=== PATIENT | female | born 1980 | race Caucasian/White ===

== ENCOUNTER 2020-10-18 15:21 | Emergency (ER) | payer OTHER ==
[2020-10-18 15:24] VITALS: BMI 30.6
[2020-10-18 17:14] LABS: PH,URINE 6.5 (5.0-8.0); URINE APPEARANCE CLEAR; URINE BILIRUBIN NEGATIVE (NEGATIVE); URINE COLOR YELLOW; URINE GLUCOSE (UA) NEGATIVE (NEGATIVE); URINE KETONE TRACE (NEGATIVE); URINE LEUK ESTERASE NEGATIVE (NEGATIVE); URINE NITRITE NEGATIVE (NEGATIVE); URINE PROTEIN NEGATIVE (NEGATIVE); URINE UROBILINOGEN 0.2 mg/dL (0.2-1.0)
[2020-10-18 17:37] VITALS: BP 124/80; PULSE 88; TEMP 98
== END 2020-10-18 18:39 | disposition home or self-care (01) ==
LOC: JER 15:21
DX: R42 Dizziness and giddiness (principal); Z3A.38 38 weeks gestation of pregnancy
CPT/HCPCS: 36415; 81003; 82570; 82962; 84156; 87086; 99283-25

== ENCOUNTER 2020-11-01 02:45 | Inpatient (IN) | payer OTHER ==
[2020-11-01] MEDS ORDERED: PROMETHAZINE HCL 25 MG/1 ML VIAL IVPB ONE ×2 (03:45→06:40)
[2020-11-01] MEDS: ELECTROLYTE-148 SOLN 1,000 ML IV SCH ×2 (03:50→09:11)
[2020-11-01] MEDS ORDERED: BUTORPHANOL TARTRATE 2 MG/ML VIAL IVPB ONE ×2 (03:55→06:40)
[2020-11-01] MEDS ORDERED: BUTORPHANOL TARTRATE 2 MG/ML VIAL ONE ×2 (04:31→07:09)
[2020-11-01] MEDS ORDERED: PROMETHAZINE HCL 25 MG/1 ML VIAL ONE ×2 (04:31→07:09)
[2020-11-01 05:19] LABS: BASO % 0.4 % (0-2.0); EOS % 0.4 % (0-4.5); HEMATOCRIT 40.2 % (32.4-45.2); HEMOGLOBIN 14.4 GM/dL (10.7-15.3); INR 0.95 (0.83-1.09); LYMPH % 8.9 % (8-40); MCH 32.8 pg (25.7-33.7); MCHC 35.8 g/dl (32.0-36.0); MEAN CELL VOLUME 91.5 fl (80-96); MEAN PLT VOLUME 9.3 fl (7.5-11.1); MONO % 6.6 % (3.8-10.2); NEUT % 83.7 % (42.8-82.8); PLATELET COUNT 67 K/MM3 (134-434); PROTHROMBIN TIME (PATIENT) 11.7 SEC (9.7-13.0); RDW 13.5 % (11.6-15.6); WHITE BLOOD COUNT 8.9 K/mm3 (4.0-10.0)
[2020-11-01 05:22] LABS: ACTIVATED PTT 31.7 SECONDS (25.2-36.5)
[2020-11-01 05:31] LABS: CALCIUM 8.2 mg/dL (8.5-10.1)
[2020-11-01 05:32] VITALS: BMI 30.9
[2020-11-01 05:32] LABS: BLOOD UREA NITROGEN 9.6 mg/dL (7-18)
[2020-11-01 05:35] LABS: CREATININE 0.8 mg/dL (0.55-1.3)
[2020-11-01] MEDS ORDERED: OXYTOCIN 20 UNITS in 0.9% NS 20 UNIT/1,000 ML INFUS.BAG IV ONE (09:02)
[2020-11-01 09:13] LABS: SYPHILIS W/ RPR CONF NON-REACTIVE (NONREACTIVE)
[2020-11-01 09:42] LABS: HIV INTERPRETATION NEGATIVE (NEGATIVE)
[2020-11-01] MEDS ORDERED: OXYTOCIN 30 UNITS in 0.9% NS 30 UNIT/500 ML INFUS.BAG IVPB ONE (10:17)
[2020-11-01] MEDS ORDERED: OXYTOCIN 30 UNITS in 0.9% NS 30 UNIT/500 ML INFUS.BAG IVPB SCH (10:30)
[2020-11-01] MEDS ORDERED: LIDOCAINE HCL 1% PRESERVATIVE FREE - 30ML VIAL ONE (11:12)
[2020-11-01] MEDS ORDERED: METHYLERGONOVINE MALEATE 0.2 MG/1 ML AMP IM PRN (11:43)
[2020-11-01] MEDS ORDERED: BISACODYL 10 MG SUPP.RECT RC PRN (11:43)
[2020-11-01] MEDS ORDERED: BENZOCAINE 28 GM HEMORRHOIDAL OINTMENT TP PRN (11:43)
[2020-11-01] MEDS ORDERED: WITCH HAZEL 50% (TUCKS) 40 PAD/JAR PAD TP PRN (11:43)
[2020-11-01] MEDS ORDERED: BENZOCAINE 20% 57 GM BOTTLE TP PRN (11:43)
[2020-11-01] MEDS ORDERED: METHYLERGONOVINE MALEATE 0.2 MG/1 ML AMP IM ONE (11:44)
[2020-11-01] MEDS ORDERED: OXYTOCIN 20 UNITS in 0.9% NS 20 UNIT/1,000 ML INFUS.BAG IV SCH (11:45)
[2020-11-01 12:00] LABS: CORD BASE EXCESS -6.9 mmol/L (0-2); CORD HCO3 18.2 mmHg (20-29); CORD HCO3 21.1 mmHg (20-29); CORD PCO2 59.4 mmHg (30-78); CORD pH 7.105 (7.14-7.44); CORD pH 7.227 (7.14-7.44)
[2020-11-01] MEDS: FERROUS SO4 325 MG TABLET (FP) PO SCH (17:41)
[2020-11-01] MEDS: IBUPROFEN 600 MG TABLET (FP) PO PRN (20:53)
[2020-11-01] MEDS: ACETAMINOPHEN 325 MG TABLET (FP) PO PRN (20:53)
[2020-11-02 08:02] LABS: BASO % 0.5 % (0-2.0); EOS % 1.9 % (0-4.5); HEMATOCRIT 32.2 % (32.4-45.2); HEMOGLOBIN 11.3 GM/dL (10.7-15.3); LYMPH % 12.7 % (8-40); MCH 32.8 pg (25.7-33.7); MCHC 35.3 g/dl (32.0-36.0); MEAN CELL VOLUME 92.9 fl (80-96); MEAN PLT VOLUME 9.4 fl (7.5-11.1); MONO % 6.2 % (3.8-10.2); NEUT % 78.7 % (42.8-82.8); PLATELET COUNT 61 K/MM3 (134-434); RBC 3.46 M/mm3 (3.60-5.2); RDW 13.7 % (11.6-15.6); WHITE BLOOD COUNT 9.5 K/mm3 (4.0-10.0)
[2020-11-02] MEDS: ACETAMINOPHEN 325 MG TABLET (FP) PO PRN ×2 (08:29→17:18)
[2020-11-02] MEDS: IBUPROFEN 600 MG TABLET (FP) PO PRN ×2 (08:30→17:19)
[2020-11-02] MEDS: FERROUS SO4 325 MG TABLET (FP) PO SCH ×2 (08:31→17:19)
[2020-11-02] MEDS: PRENATAL VITAMINS W/ FOLIC ACID TABLET (FP) PO SCH (09:26)
[2020-11-02] MEDS ORDERED: SENNOSIDES/DOCUSATE COMBO (SENNA PLUS) TABLET (UD) PO PRN (22:00)
[2020-11-03] MEDS: IBUPROFEN 600 MG TABLET (FP) PO PRN ×2 (04:34→09:30)
[2020-11-03] MEDS: ACETAMINOPHEN 325 MG TABLET (FP) PO PRN ×2 (04:34→09:30)
[2020-11-03 08:48] LABS: BASO % 0.7 % (0-2.0); EOS % 3.8 % (0-4.5); HEMATOCRIT 33.9 % (32.4-45.2); HEMOGLOBIN 11.9 GM/dL (10.7-15.3); MCH 32.1 pg (25.7-33.7); MEAN CELL VOLUME 91.8 fl (80-96); MEAN PLT VOLUME 9.5 fl (7.5-11.1); MONO % 5.6 % (3.8-10.2); NEUT % 72.9 % (42.8-82.8); PLATELET COUNT 81 K/MM3 (134-434); RDW 13.7 % (11.6-15.6); WHITE BLOOD COUNT 8.7 K/mm3 (4.0-10.0)
[2020-11-03] MEDS: PRENATAL VITAMINS W/ FOLIC ACID TABLET (FP) PO SCH (09:30)
[2020-11-03] MEDS: FERROUS SO4 325 MG TABLET (FP) PO SCH (09:30)
[2020-11-03 10:20] VITALS: BP 118/83; PULSE 77; TEMP 98.1
[2020-11-03 10:57] LABS: POC NITRAZINE POS
== END 2020-11-03 14:50 | disposition home or self-care (01) | DRG 806 ==
LOC: JDEL 02:45 → JLDR 03:45 → J3W 13:30
PROVIDERS: ADMIT Obstetrics & Gynecology; ATTEND Obstetrics & Gynecology
PROC: 10E0XZZ Delivery of Products of Conception, External Approach (ICD-10-PCS; principal; 2020-11-01)
PROC: 0HQ9XZZ Repair Perineum Skin, External Approach (ICD-10-PCS; 2020-11-01)
DX: O48.0 Post-term pregnancy (principal); O99.12 Other diseases of the blood and blood-forming organs and certain disorders involving the immune mechanism complicating childbirth; Z37.0 Single live birth; D69.6 Thrombocytopenia, unspecified; Z3A.40 40 weeks gestation of pregnancy; O70.0 First degree perineal laceration during delivery
CPT/HCPCS: 36415; 36600; 59409; 80048; 82803; 83986-QW; 85025; 85032; 85610; 85730; 86780; 86850; 86900; 86901; 86922; 87389; C9803; U0003; U0005